=== PATIENT | female | born 1990 | race Caucasian/White ===

== ENCOUNTER 2024-08-04 20:44 | Emergency (ER) | payer BC, SELFPAY ==
[2024-08-04 20:46] VITALS: BP 102/72; PULSE 97; RESP 16; TEMP 36.8; O2SAT 98
[2024-08-04] MEDS: Ondansetron 4 MG/2 ML VIAL IVP ×2 (21:37→21:57)
[2024-08-04] MEDS: Ketorolac 15 MG/ML VIAL IVP (21:37)
[2024-08-04 21:45] LABS: Abs Immature Grans 0.03 10^3/uL (0.0-0.06); Absolute Basophil Count 0.03 10^3/uL (0.0-0.2); Absolute Eosinophil Count 0.12 10^3/uL (0.0-0.7); Absolute Lymphocyte Count 0.52 10^3/uL (1.2-3.4); Absolute Monocyte Count 1.12 10^3/uL (0.1-0.8); Absolute Neutrophil Count 8.29 10^3/uL (1.2-6.7); Basophils % 0.3 %; Eosinophils % 1.2 %; HCT 38.9 % (36.0-46.0); HGB 13.2 g/dL (11.2-15.7); Immature Grans % 0.3 %; Lymphocytes % 5.1 %; MCH 31.1 pg (27.0-33.0); MCHC 33.9 % (32.0-36.0); MCV 92 fL (80-95); MPV 8.4 fL (8.0-11.0); Monocytes % 11.1 %; Platelet Count 220 10^3/uL (130-400); RBC 4.24 10^6/uL (3.93-5.22); RDW-SD 43.9 fL; WBC 10.11 10^3/uL (4.4-10.8)
[2024-08-04] MEDS: ACETAMINOPHEN 1,000 MG/100 ML BAG 400 MG IVPB (21:56)
--- NOTE | 2024-08-04 21:57 | NUR.NOTE ---
Unable to provide urine at this time, JIM
[2024-08-04 22:00] VITALS: RESP 16; O2SAT 96
[2024-08-04 22:00] LABS: ALT 28 U/L (14-59); AST 25 U/L (15-37); Alkaline Phosphatase 62 U/L (46-116); BUN 9 mg/dL (7-18); Bilirubin, Total 0.67 mg/dL (0.2-1.0); CREATININE 0.9 mg/dL (0.55-1.02); Calcium 8.4 mg/dL (8.5-10.1); Chloride 105 mmol/L (98-107); Glucose 100 mg/dL (74-106); Magnesium 1.7 mg/dL (1.8-2.4); Potassium 3.7 mmol/L (3.5-5.1); Sodium 139 mmol/L (136-145); Total Protein 7.6 g/dL (6.4-8.2)
--- OUTSIDE RECORDS SUMMARY | 2024-08-04 22:12 | XMS_ITS | Clinical Summary ---
Author Organization [facility] Address [address] [place] [address] Care Team Providers Care Intern Brand Name Role Phone Teresita Choi APRN Primary Care Provider [phone] Allergies No known active allergies Medications ondansetron (ZOFRAN-ODT) 4 mg disintegrating tablet Take 1 Tab by mouth every 8 hours as needed for Nausea. 6 Tab 0 6 Active promethazine (PHENERGAN) 25 mg tablet Take 1 Tab by mouth every 6 hours as needed for Nausea. 10 Tab 7 Active Social History Tobacco Use Types Packs/Day Years Used Date Smoking Tobacco: Never Smokeless Tobacco: Never Alcohol Use Standard Drinks/Week Comments Yes 0 (1 standard drink = 0.6 oz pur e alcohol) Comments Unknown Sex and Gender Information Value Date Recorded Sex Assigned at Not on file Legal Sex Female 18:37 EST Gender Identity Not on file Sexual Orientation Not on file Obstetrics History Last Filed Vital Signs Vital Sign Reading Time Taken Comments Blood Pressure 100/59 10/13/2016 0034 EST Pulse 58 10/13/2016 0034 EST Temperature 36.7 ??C (98.1 ??F) 10/13/2016 0034 EST Respiratory Rate 16 10/13/2016 0034 EST Oxygen Saturation 98% 10/13/2016 0034 EST Inhaled Oxygen Concentration - - Weight 65.8 kg (145 lb) 10/12/20162011 EST Height 170.2 cm (5' 7) 10/12/20162011 EST Body Mass Index 22.71 10/12/20162011 EST Plan of Treatment Health Maintenance Due Date Last Done Comments Hepatitis C Screen 1990 Hepatitis B Vaccine (1 of 3 - 19+ 3-dose series) 11/11 COVID-19 Vaccine ( season) 2024 Care Teams Intern Brand Relationship Specialty Start Date End Date [facility]resita Ch[facility]N [facility] [id number] [id number] PCP - General 11/17/15
--- OUTSIDE RECORDS SUMMARY | 2024-08-04 22:13 | XMS_ITS | Encounter Summary ---
Author Organization [facility] Address [address] [place] [id number] Care Team Providers Care Abalone Fisherman Name Role Phone Teresita Choi APRN Primary Care Provider [phone] Reason for Visit * Reason Comments GI Problem Vomiting with chills since Monday Encounter Details Date Type Department Care Team (Late st Contact Info) Description 10/12/2016 20:10 EST - 10/13/2016 0:39 EST Emergency [facility] Emergency Department - [address] [place] [address] [place], [place] [id number] Pedro Toledo MD PA-C [address] [place] [address] Adalid Agosto PABrinda [address] [place], [place] [id number] Emergency, MD [place] Nausea and vomiting, intractability of vomiting not specified, unspecified vomiting type (Primary Dx) Discharge Disposition: Home or Self Care Social History Tobacco Use Types Packs/Day Years Used Date Smoking Tobacco: Never Smokeless Tobacco: Never Alcohol Use Standard Drinks/Week Comments Yes 0 (1 standard drink = 0.6 oz pur e alcohol) Comments Unknown Sex and Gender Information Value Date Recorded Sex Assigned at Not on file Legal Sex Female 18:37 EST Gender Identity Not on file Sexual Orientation Not on file documented as of this encounter Last Filed Vital Signs Vital Sign Reading [...] EST Body Mass Index 22.71 10/12/20162011 EST documented in this encounter Discharge Diagnoses Diagnosis R11.2 Nausea with vomiting, unspecified-R11.2[ICD-10-CM] R10.817 Generalized abdominal tenderness-R10.817[ICD-10-CM] documented in this encounter Discharge Instructions * Discharge Instructions* Adalid Agosto PA - 10/13/2016 0:25 EST Exam today shows normal vital signs, diffuse abdominal tenderness but nothing focal. Urinalysis shows no signs of infection. Blood work today including CBC, CMP and lipase is totally normal. Unclear source of your symptoms, but sounds likely to be a stomach bug or food borne illness which is lingering. In the emergency room. Given Zofran 8 mg IV and 2 L of fluid with some relief. You are given Phenergan 25 mg by mouth. At home, use this medication every 6 hours if needed for nausea or vomiting. Return immediately for worsening or uncontrolled symptoms, especially severe abdominal pain, uncontrolled vomiting, fevers, otherwise followup with your PCP. documented in this encounter Medications at Time of Discharge ondansetron (ZOFRAN-ODT) 4 mg disintegrating tablet Take 1 Tab by mouth every 8 hours as needed for Nausea. 6 Tab 0 03/08/2016 promethazine (PHENERGAN) 25 mg tablet Take 1 Tab by mouth every 6 hours as needed for Nausea. 10 Tab 10/13/2016 documented as of this encounter Ordered Prescriptions Prescription Sig Dispense Quantity Refills Last Filled Start Date End Date promethazine (PHENERGAN) 25 mg tablet Take 1 Tab by mouth every 6 hours as needed for Nausea. 10 Tab 10/13/2016 documented in this encounter Discharge Disposition Disposition Code Departure Means Destination Home or Self Care Car Home documented in this encounter ED Notes * Tiana Hanley RN - 10/13/2016 0037 EST Pt tolerating PO w/o N/V. VSS, afebrile. AVS and discharge paperwork reviewed w/ pt. Verbalized understanding. No acute events this visit. Ambulatory upon discharge. Leaving w/ friend. * Adalid Agosto PA - 10/12/2016 2147 EST DOS: 10/12/2016 Chief Complaint Patient presents with ??? GI Problem Vomiting with chills since Monday HPI HPI Comments: I, Marvin Abbott, am scribing for Adalid Agosto PA while he is personally performing the service. Marvin Abbott 10/12/2016 21:47 Loraine Mcdonald is a 25 y.o. female with a history of reported gastric ulcers and s/p appendectomy who presents to the ED with 3 days of nausea and vomiting. The vomiting was most frequent on the first day. She did not vomit at all yesterday, and only vomited once today, prior to arrival. She was given IV Zofran, Toradol, and NS prior to my evaluation, though she still complains of mild nausea. Patient also endorses diffuse, crampy abdominal pain, headache, and chills for the past 3 days. She states she has not been able to tolerate food since the onset of symptoms, and has not had a bowelmovement since 2 days ago. She states she has never had these kinds of symptoms before. Patient is c urrently on her menstrual period and notes the discharge is darker in color, but denies any irregular vaginal discharge. She denies diarrhea, cough, or cold symptoms. She denies hematuria or dysuria.She is not on any medication including control. Social history: No tobacco use. Drinks alcohol. The history is provided by medical records, the patient and a friend. Review of Systems Review of Systems Constitutional: Positive for appetite change and chills. Negative for fever. HENT: Negative for congestion and rhinorrhea. Respiratory: Negative for cough. Gastrointestinal: Positive for abdominal pain, nausea and vomiting. Negative for diarrhea. Genitourinary: Positive for vaginal discharge (on period, not irregular). Negative for dysuria and hematuria. Neurological: Positive for headaches. The patient's past medical, family and social history was reviewed and updated as needed. No Known Allergies Vital Signs Vitals Reassessment?: Yes Temp: 36.7 ??C (98.1 ??F) Temp src: Oral Pulse: 58 Resp: 16 SpO2: 98 % BP: 100/59 BP MAP: 68 mm Hg BP Device: BP Machine Patient Position: Sitting BP Cuff Location: Right arm O2 Device: None (Room air) Physical Exam Constitutional: She is oriented to person, place, and time. She appears well- developed and well-nourished. Non-toxic appearance. She does not appear ill. No distress. HENT: Mouth/Throat: Oropharynx is clear and moist. Eyes: Conjunctivae and EOM are normal. Pupils are equal, round, and reactive to light. Cardiovascular: Normal rate and regular rhythm. Pulmonary/Chest: Effort normal. Abdominal: There is tenderness (mild, diffuse, nonfocal). No flank tenderness Neurological: She is alert and oriented to person, place, and time. Skin: Skin is warm and dry. Psychiatric: She has a normal mood and affect. Her behavior is normal. Judgment and thought contentnormal. Nursing note and vitals reviewed. RESULTS EKG orders: None Radiology orders: None ED Lab Results Labs Reviewed COMPREHENSIVE METABOLIC PANEL (CMP) - Abnormal Result Value Status Potassium 3.4 (*) Final Sodium 139 Final Chloride 102 Final CO2 26 Final Total Alkaline Phosphatase 61 Final Bilirubin, Total 0.7 Final AST 25 Final ALT 28 Final Albumin 4.3 Final Total Protein 7.1 Final Creatinine 0.73 Final GFR, Calculated 113 Final BUN 11 Final Calcium 9.3 Final Calculated Calcium 9.1 Final Glucose, Serum 79 Final Fasting? Unknown Final HEMAGRAM AND DIFFERENTIAL - Abnormal ABS Lymphs 1.05 (*) Final ABS Monocytes 1.02 (*) Final WBC 7.03 Final RBC 4.39 Final Hemoglobin 13.5 Final HCT 38.9 Final MCV 89 Final MCH 30.8 Final MCHC 34.7 Final RDW-CV 12.7 Final RDW-SD 41.4 Final PLT 271 Final MPV 10.4 Final Neutrophils 67.8 Final Lymphocytes 14.9 Final Monocytes 14.5 Final Eosinophils 2.3 Final Basophils 0.4 Final Immature Grans 0.1 Final ABS Neutrophils 4.76 Final ABS Eosinophils 0.16 Final ABS Basophils 0.03 Final ABS Immature Grans 0.01 Final Type of Diff: Automated Final POCT URINE DIPSTICK - Abnormal Bilirubin 1+ (*) Final Ketones Trace (*) Final Blood 1+ (*) Final Protein 1+ (*) Final Color YELLOW Final Clarity, UA Clear Final Glucose Neg Final Specific [place] 1.020 Final pH 6.0 Final Urobilinogen 0.2 Final Nitrite Neg Final Leuk Esterase Neg Final Tech ID [id number] Final LIPASE Lipase 112 Final POCT TEST, CLINITEK UPT Result Neg Final Tech ID [id number] Final Patient had labs that were reviewed independently by myself, significant for normal CBC, normal BMP, and normal lipase. Urinalysis showed no signs of infection. Relevant Data Procedures ED COURSE A medical screening exam was performed. On exam, vitals were normal. Physical exam showed mild, diffuse abdominal tenderness. She had no flank tenderness and the rest of her exam was normal. Labs showed normal BMP, normal CBC, and normal lipase. Urinalysis showed no signs of infection. Patient was given another 1 L bolus of NS and Zofran4 mg IV. 23:30. Re-evaluation. Patient still complaining of nausea after 2 doses of Zofran. She was given Phenergan 25 mg PO. Will observe patient and see if she passes PO challenge. 00:30. Re-evaluation. Patient still slightly nauseous, but able to eat and drink with no vomiting. Patient was discharged with a starter pack of Phenergan. Prior to discharge my usual and customary return precautions were reviewed with the patient and/or family. This included follow-up instructions and reasons to return to the Emergency Department if condition worsens, does not improve as expected, or other new concerns arise. ASSESSMENT AND PLAN Final diagnoses: Nausea and vomiting, intractability of vomiting not specified, unspecified vomiting type ED Current Prescriptions Medication Dispense Auth. Provider promethazine (PHENERGAN) 25 mg tablet 10 Tab Adalid Agosto PA DISPOSITION: Discharged The patient's pain was managed to an adequate level weighing risk vs. benefit of further medications. Upon departure from the Emergency Department, the patient's pain was 2 on a zero to ten scale. Condition at departure from the Emergency Department: Improved PCP: Teresita Love was available for supervision. This documentation is recorded by Marvin Abbott acting as Scribe under the direction and presence of Adalid Agosto PA. Adalid Agosto PA: I personally performed the services recorded by the scribe in my presence. I confirm the scribe's documentation has been reviewed by me to accurately and completely record my work, treatment, procedures, and medical decision making. 10/14/2016 12:04 No flowsheet data found. * Pedro Toledo PA - 10/12/2016 2019 EST I, Vel Rush, am scribing for Pedro Toledo PA while he/she is personally performing the service. Vel Rush 10/12/2016 20:15 Loraine Mcdonald is a 25 y.o. female with no significant past medical history who presents to the with three days of nausea, vomiting and generalized abdominal pain that she describes as cramping in nature. She reports that three days ago, she developed nausea and vomiting, then today developed the abdominal discomfort. Patient states that she has had associated chills, increased fatigue andhas not been able to tolerate PO today. Yesterday she reports that she had only a piece of toast bymouth. Patient denies any recent sick contacts. She states that she has normal menstrual cycles andis currently having her menstrual cycle. Other than her typical vaginal bleeding during her period she denies any other vaginal discharge. She is sexually active but does not believe there is any chance of STD or STI. Patient states they have otherwise been healthy denying any headache, lightheadedness, dizziness, cough, ear pain, eye pain, fever, chills, neck pain, back pain, chest pain, shortness of breath, dysuria or difficulty ambulating. Social History - Patient endorses some social alcohol use but denies any other drug use. On my initial examination in triage the patient had diffuse epigastric discomfort with no real point tenderness. A POCT urine, UPT, and intravenous hydration was ordered prior to the patient being roomed. Toradol and zofran and 1L NS given for symptoms. Patient seen by me, the PA for an initial evaluation. An initial workup was started. Patient given instructions to wait to be seen until another provider can take over care. Given strict instructionsto not leave the department as workup has just begun and there could be further tests and regimens necessary to complete care. This documentation is recorded by Vel Rush acting as Scribe under the direction and presence of Pedro Toledo PA. Pedro Toledo PA: I personally performed the services recorded by the scribe in my presence. I confirm the scribe's documentation has been reviewed by me to accurately and completely record my work, treatment, procedures, and medical decision making. documented in this encounter Plan of Treatment Not on file documented as of this encounter Procedures Procedure Name Priority Date/Time Associated Diagnosis Comments COMPLETE BLOOD COUNT AND DIFFERENTIAL STAT 10/12/2016 22:20 EST LIPASE STAT 10/12/2016 22:20 EST COMPREHENSIVE METABOLIC PANEL (CMP) STAT 10/12/2016 22:20 EST POCT TEST, CLINITEK STAT 10/12/2016 20:41 EST POCT URINE DIPSTICK, CLINITEK STAT 10/12/2016 20:41 EST documented in this encounter Results * (ABNORMAL) HEMAGRAM AND DIFFERENTIAL (10/12/2016 22:20 EST) WBC 7.03 4.0 - 12.4 K/cmm 10/12/2016 23:21 [facility] RBC 4.39 3.86 - 5.04 M/cmm 10/12/2016 23:21 [facility] Hemoglobin 13.5 11.6 - 15.2 gm/dl 10/12/2016 23:21 [facility] HCT 38.9 34.9 - 44.4 % 10/12/2016 23:21 [facility] MCV 89 81 - 98 fl 10/12/2016 23:21 [facility] MCH 30.8 26.7 - 33.3 pg 10/12/2016 23:21 [facility] MCHC 34.7 32.1 - 35.9 gm/dl 10/12/2016 23:21 [facility] RDW-CV 12.7 11.7 - 14.6 % 10/12/2016 23:21 [facility] RDW-SD 41.4 37.6 - 50.3 fl 10/12/2016 23:21 [facility] PLT 271 141 - 377 K/cmm 10/12/2016 23:21 [facility] MPV 10.4 9.5 - 12.7 fl 10/12/2016 23:21 [facility] % Neutrophils 67.8 % 10/12/2016 23:21 [facility] % Lymphocytes 14.9 % 10/12/2016 23:21 [facility] % Monocytes 14.5 % 10/12/2016 23:21 [facility] % Eosinophils 2.3 % 10/12/2016 23:21 [facility] % Basophils 0.4 % 10/12/2016 23:21 [facility] % Immature Grans 0.1 % 10/12/2016 23:21 [facility] ABS Neutrophils 4.76 2.20 - 8.85 K/cmm 10/12/2016 23:21 [facility] ABS Lymphs 1.05(L) 1.09 - 3.30 K/cmm 10/12/2016 23:21 [facility] ABS Monocytes 1.02(H) 0.1 - 0.8 K/cmm 10/12/2016 23:21 [facility] ABS Eosinophils 0.16 0.03 - 0.61 K/cmm 10/12/2016 23:21 [facility] ABS Basophils 0.03 0.01 - 0.11 K/cmm 10/12/2016 23:21 [facility] ABS Immature Grans 0.01 0 - 0.06 K/cmm 10/12/2016 23:21 [facility] Type of Diff: Automated 10/12/2016 23:21 [facility] Blood specimen (specimen) BLOOD SPECIMEN / Unknown 10/12/2016 22:20 EST 10/12/2016 22:48 EST Adalid Agosto PA-C PACKAGES & DNA PROBE ORDERABL ES Final Result [facility] [address] [place] [address] * (ABNORMAL) COMPREHENSIVE METABOLIC PANEL (CMP) (10/12/2016 22:20 EST) Potassium 3.4(L) 3.5 - 5.0 mEq/L 10/12/2016 23:08 [facility] Sodium 139 136 - 145 mEq/L 10/12/2016 23:08 [facility] Chloride 102 96 - 110 mEq/L 10/12/2016 23:08 [facility] CO2 26 22 - 32 mEq/L 10/12/2016 23:08 [facility] Comment:Note new reference r lori 05/24/16 Total Alkaline Phosphatase 61 38 - 126 U/L 10/12/2016 23:08 [facility] Bilirubin, Total 0.7 <1.4 mg/dl 10/13/19 17 23:08 [facility] AST 25 15 - 46 U/L 10/12/2016 23:08 [facility] ALT 28 <53 U/L 10/12/2016 23:08 [facility] Albumin 4.3 3.4 - 4.9 g/dl 10/12/2016 23:08 [facility] Total Protein 7.1 6.3 - 8.2 g/dl 10/12/2016 23:08 [facility] Creatinine 0.73 0.52 - 1.04 mg/dl 10/12/2016 23:08 [facility] GFR, Calculated 113 >60 ml/min/1.7 3m2 10/12/2016 23:08 [facility] Comment: eGFR calculated using CKD-EPI equation for non Americans. Multiply eGFR by 1.16 for Americans. BUN 11 10 - 26 mg/dl 10/12/2016 23:08 [facility] Calcium 9.3 8.5 - 10.5 mg/dl 10/12/2016 23:08 [facility] Calculated Calcium 9.1 8.5 - 10.5 mg/dl 10/12/2016 23:08 [facility] Comment: Note new formula for calculation in use 05/11/2016 Glucose, Serum 79 70 - 100 mg/dl 10/12/2016 23:08 [facility] Fasting? Unknown 10/12/2016 22:48 EST [facility] Blood specimen (specimen) BLOOD SPECIMEN / Unknown 10/12/2016 22:20 EST 10/12/2016 22:48 EST Adalid Agosto PA-C CHEMISTRY & BLOOD GAS ORDERAB LES Final Result Performing Organization Address City/[facility]/ZIP Co de Phone Number [facility] [address] [place] [address] * LIPASE (10/12/2016 22:20 EST) Lipase 112 <251 U/L 10/12/2016 23:08 EST [facility] Blood specimen (specimen) BLOOD SPECIMEN / Unknown 10/12/2016 22:20 EST 10/12/2016 22:48 EST Adalid Agosto PA-C CHEMISTRY & BLOOD GAS ORDERAB LES Final Result Performing Organization Address City/[facility]/ZIP Co de Phone Number [facility] [address] [place] [address] * POCT TEST, CLINITEK (10/12/2016 20:41 EST) UPT Result Neg Neg 10/12/2016 20:50 EST [facility] platen press operator ID [id number] 10/12/2016 20:50 EST [facility] Comment:Test performed at [facility] Urine specimen (specimen) URINE / Unknown 10/12/2016 20:41 EST 10/12/2016 20:50 EST Pedro Toledo MD, PA-C POINT OF CARE T EST ORDERABLES Final Result Performing Organization Address City/[facility]/ZIP Co de Phone Number [facility] [address] [place] [address] * (ABNORMAL) POCT URINE DIPSTICK (10/12/2016 20:41 EST) Color YELLOW 10/12/2016 20:45 [facility] Clarity, UA Clear 10/12/2016 20:45 [facility] Glucose Neg Neg 10/12/2016 20:45 [facility] Bilirubin 1+(A) Neg 10/12/2016 20:45 [facility] Ketones Trace(A) Neg 10/12/2016 20:45 [facility] Specific [place] 1.020 1.001 - 1.035 10/12/2016 20:45 [facility] Blood 1+(A) Neg 10/12/2016 20:45 [facility] pH 6.0 4.6 - 8.0 10/12/2016 20:45 [facility] Protein 1+(A) Neg 10/12/2016 20:45 [facility] Urobilinogen 0.2 0.2 - 1.0 E.U./dl 10/12/2016 20:45 [facility] Nitrite Neg Neg 10/12/2016 20:45 [facility] Leuk Esterase Neg Neg 10/12/2016 20:45 [facility] platen press operator ID [id number] 10/12/2016 20:45 [facility] Comment:Test performed at [facility] Urine specimen (specimen) URINE / Unknown 10/12/2016 20:41 EST 10/12/2016 20:45 EST Pedro Toledo MD, PA-C POINT OF CARE T EST ORDERABLES Final Result Performing Organization Address City/[facility]/ZIP Co de Phone Number [facility] [address] [place] [address] documented in this encounter Visit Diagnoses Diagnosis Nausea and vomiting, intractability of vomiting not specified, unspecified vomiting type- Primary documented in this encounter Administered Medications Inactive Administered Medications - up to 3 most recent administrations Medication Order MAR Action Action Date Dose Rate Site ketOROLAC (TORADOL) injection 15 mg 15 mg, intravenous, NOW X1, 1 dose, On Mon10/12/16 at 2030, STAT Given 10/12/2016 20:36 EST 15 mg ondansetron (PF) (ZOFRAN) injection 4 mg 4 mg, intravenous, NOW X1, 1 dose, On Mon10/12/16 at 2030, STAT Given 10/12/2016 20:36 EST 4 mg ondansetron (PF) (ZOFRAN) injection 4 mg 4 mg, intravenous, NOW X1, 1 dose, On Mon10/12/16 at 2200, STAT Given 10/12/2016 22:20 EST 4 mg promethazine (PHENERGAN) tablet 25 mg 25 mg, oral, NOW X1, 1 dose, On Mon10/12/16 at 2345, STAT Given 10/12/2016 23:45 EST 25 mg Promethazine 25 mg Tab STARTER PACK 1 Package, oral, NOW X1, 1 dose, On Mon10/13/16 at 0030, STAT Given 10/13/2016 0:37 EST 1 Package sodium chloride 0.9 % BOLUS 1,000 mL 1,000 mL, intravenous, NOW X1, 1 dose, On Mon10/12/16 at 2030, STAT New Bag 10/12/2016 20:36 EST 1,000 mL sodium chloride 0.9 % BOLUS 1,000 mL 1,000 mL, intravenous, Once (Without Time Specified), 1 dose, Starting on Mon10/12/16 at 2159, Until Mon10/12/16 at 2355, STAT New Bag 10/12/2016 22:20 EST 1,000 mL documented in this encounter Active and Recently Administered Medications Times are shown in EST. Scheduled Medication Order 10/11/2016 10/12/2016 10/13/2016 ketOROLAC (TORADOL) injection 15 mg (COMPLETED) 15 mg, intravenous, NOW X1, 1 dose, On Mon10/12/16 at 2030, STAT 2035 (Given - Provider: Yue Jefferson RN) ondansetron (PF) (ZOFRAN) injection 4 mg (COMPLETED) 4 mg, intravenous, NOW X1, 1 dose, On Mon10/12/16 at 2030, STAT 2036 (Given - Provider: Yue Jefferson, JOSE MARIA) ondansetron (PF) (ZOFRAN) injection 4 mg (COMPLETED) 4 mg, intravenous, NOW X1, 1 dose, On Mon10/12/16 at 2200, STAT 2220 (Given - Provider: Tiana Hanley, RN) promethazine (PHENERGAN) tablet 25 mg (COMPLETED) 25 mg, oral, NOW X1, 1 dose, On Mon10/12/16 at 2345, STAT 2345 (Given - Provider: Tiana Hanley, JOSE MARIA) Promethazine 25 mg Tab STARTER PACK (COMPLETED) 1 Package, oral, NOW X1, 1 dose, On Nohemy 10/13/16 at 0030, STAT 0037 (Given - Provid er: Tiana Hanley RN) sodium chloride 0.9 % BOLUS 1,000 mL (COMPLETED) 1,000 mL, intravenous, NOW X1, 1 dose, On 10/12/16 at 2030, STAT 2036 (New Bag - Provider: Yue Jefferson RN)2220 (Completed - Provider: Tiana Hanley RN) sodium chloride 0.9 % BOLUS 1,000 mL (COMPLETED) 1,000 mL, intravenous, Once (Without Time Specified), 1 dose, Starting on Mon10/12/16 at 2159, Until Mon10/12/16 at 2355, STAT 2220 (New Bag - Provider: Tiana Hanley, JOSE MARIA)2355 (Completed - Provider: Tiana Hanley, JOSE MARIA) documented in this encounter Orders Nursing Count Last Ordered Date First Orde red Date INSERT PERIPHERAL IV 1 10/12/2016 documented in this encounter Care Teams Abalone Fisherman Relationship Specialty Start Date End Date Teresita Choi APRN [facility] [address] [place] [address] PCP - General 11/17/15 documented as of this encounter
--- OUTSIDE RECORDS SUMMARY | 2024-08-04 22:13 | XMS_ITS | Encounter Summary ---
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 Name Role Phone Teresita Choi APRN Primary Care Provider [phone] Reason for Visit * Reason Comments Abdominal Pain Intermittent lower a bdominal pain w/ profound constant nausea since Monday, diarrhea Encounter Details Date Type Department Care Team (Late st Contact Info) Description 03/08/2016 11:37 EDT - 03/08/2016 15:33 EDT Emergency [facility] [place] [address] Tyson Sarabia MD Emergency, MD [place] Generalized abdominal pain (Primary Dx); Hematochezia; Nausea Discharge Disposition: Home or Self Care Social History Tobacco Use Types Packs/Day Years Used Date Smoking Tobacco: Never Assessed Comments Unknown Sex and Gender Information Value Date Recorded Sex Assigned at Not on file Legal Sex Female 18:37 EST Gender Identity Not on file Sexual Orientation Not on file documented as of this encounter Last Filed Vital Signs Vital Sign Reading Time Taken Comments Blood Pressure 113/61 03/08/2016 1500 EDT Pulse - - Temperature 36.6 ??C (97.9 ??F) 03/08/2016 1151 EDT Respiratory Rate - - Oxygen Saturation 99% 03/08/2016 1500 EDT Inhaled Oxygen Concentration - - Weight 70.3 kg (155 lb) 03/08/2016 1151 EDT Height 172.7 cm (5' 8) 03/08/2016 1151 EDT Body Mass Index 23.57 03/08/2016 1151 EDT documented in this encounter Discharge Diagnoses Diagnosis R10.30 Lower abdominal pain, unspecified-R10.30[ICD-10-CM] K92.1 Melena-K92.1[ICD-10-CM] R11.0 Nausea-R11.0[ICD-10-CM] Z90.49 Acquired absence of other specified parts of digestive tract-Z90.49[ICD-10-CM] documented in this encounter Discharge Instructions * Discharge Instructions* Tyson Sarabia MD - 03/08/2016 14:42 EDT Use the zofran if needed for nausea Use tylenol and warmth to abdomen for pain Lots liquids See GI doctor in followup Return here if worsening symptoms documented in this encounter Medications at Time of Discharge ondansetron (ZOFRAN-ODT) 4 mg disintegrating tablet Take 1 Tab by mouth every 8 hours as needed for Nausea. 6 Tab 0 03/08/2016 documented as of this encounter Ordered Prescriptions Prescription Sig Dispense Quantity Refills Last Filled Start Date End Date ondansetron (ZOFRAN-ODT) 4 mg disintegrating tablet Take 1 Tab by mouth every 8 hours as needed for Nausea. 6 Tab 0 03/08/2016 documented in this encounter Discharge Disposition Disposition Code Departure Means Destination Home or Self Care Walk-out Home documented in this encounter ED Notes * Jabier Sharpe RN - 03/08/2016 1532 EDT Vitals obtained- reviewed discharge instructions with pt. * Eloise Rome RN - 03/08/2016 1334 EDT Pt given ice chips and water per md. * Eloise Rome RN - 03/08/2016 1328 EDT Pt set up for pelvic exam, Dr Sarabia in room , pelvic exam done , pt tolerated well. * Partha Mccarty - 03/08/2016 1317 EDT Blood drawn via saline lock per protocol, tiger and purple tube(s) sent to lab per order. * Tyson Sarabia MD - 03/08/2016 1211 EDT DOS: 03/08/2016 Chief Complaint Patient presents with ??? Abdominal Pain Intermittent lower abdominal pain w/ profound constant nausea since Monday, diarrhea HPI The patient is a 25 y.o. female who presents today with Abdominal Pain HPI Comments: I, Eva Yang, am scribing for Tyson Sarabia MD while he is personally performing the service. Eva Yang 03/08/2016 12:12 Loraine Mcdonald is a 25 y.o. 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 Pain is described as sharp and has never full resolved since onset. She notes associated nausea, loose stools, decreased appetite and increased white vaginal secretions, which she has had previously. She denies possible exposure to sexually transmitted disease. She reports chronic abdominal cramping and bright red blood in her stool (present currently) at baseline due to bowel disease, which are unchanged today. Patient notes these current symptoms feel different in nature and more severe than previous. Patient states symptoms worsened yesterday causing her to be diaphoretic, SOB, and lightheaded and was sent home from work. She denies fever, CP, vomiting, dysuria, hematuria, diarrhea, constipation, frequency, or urgency. Patient is sexually active and on Nuvaring. She denies family history of bowel disease. Patient states she had a follow up with GI several weeks ago, but had to cancel this due to a family emergency. The history is provided by the patient and medical records. Review of Systems Review of Systems Constitutional: Positive for diaphoresis and appetite change (reduced). Negative for fever and chills. Eyes: Negative for visual disturbance. Respiratory: Positive for shortness of breath. Cardiovascular: Negative for chest pain. Gastrointestinal: Positive for nausea, abdominal pain and blood in stool (chronic). Negative for vomiting, diarrhea and constipation. Genitourinary: Positive for vaginal discharge (increased). Negative for dysuria, urgency, hematuria, vaginal bleeding and difficulty urinating. Musculoskeletal: Negative for back pain and neck stiffness. Skin: Negative for rash. Neurological: Positive for light-headedness. Negative for dizziness, weakness and headaches. Psychiatric/Behavioral: Negative for confusion. All other systems reviewed and are negative. No Known Allergies Vital Signs Temp: 36.6 ??C (97.9 ??F) Heart Rate: 59 BPM SpO2: 100 % BP: 132/77 mmHg BP Device: BP Machine Patient Position: Sitting BP Cuff Location: Right arm O2 Device: None (Room air) Physical Exam Constitutional: She is oriented to person, place, and time. She appears well- developed and well-nourished. No distress. HENT: Head: Normocephalic and atraumatic. Right Ear: External ear normal. Left Ear: External ear normal. Nose: Nose normal. Eyes: Conjunctivae are normal. Pupils are equal, round, and reactive to light. Right eye exhibits no discharge. Left eye exhibits no discharge. Neck: Normal range of motion. Neck supple. No tracheal deviation present. Cardiovascular: Normal rate, regular rhythm and normal heart sounds. No murmur heard. Pulmonary/Chest: Effort normal and breath sounds normal. No respiratory distress. She has no wheezes. She has no rales. Abdominal: Soft. Bowel sounds are normal. She exhibits no distension. There is tenderness (Tender diffusely but most prominently in the lower abdomen.). Genitourinary: Pelvic exam performed with manager academic, which showed small amount of clear discharge around the cervical os. Mild diffuse adnexal and uterine tenderness. No significant cervical motion tenderness. No bleeding. No masses. Musculoskeletal: Normal range of motion. Neurological: She is alert and oriented to person, place, and time. She has normal strength. No sensory deficit. Awake and alert. Skin: Skin is warm and dry. No rash noted. She is not diaphoretic. Psychiatric: She has a normal mood and affect. Nursing note and vitals reviewed. RESULTS ED Lab Results Labs Reviewed HEMAGRAM AND DIFFERENTIAL - Abnormal MPV 9.3 (*) Final WBC 6.83 Final RBC 4.54 Final Hemoglobin 13.9 Final HCT 39.8 Final MCV 88 Final MCH 30.6 Final MCHC 34.9 Final RDW-CV 12.4 Final RDW-SD 39.8 Final PLT 299 Final Neutrophils 54.8 Final Lymphocytes 31.9 Final Monocytes 9.8 Final Eosinophils 2.5 Final Basophils 0.7 Final Immature Grans 0.3 Final ABS Neutrophils 3.74 Final ABS Lymphs 2.18 Final ABS Monocytes 0.67 Final ABS Eosinophils 0.17 Final ABS Basophils 0.05 Final ABS Immature Grans 0.02 Final Type of Diff: Automated Final BASIC METABOLIC PANEL - Abnormal BUN 9 (*) Final Sodium 142 Final Potassium 3.7 Final Chloride 102 Final CO2 28 Final Creatinine 0.72 Final GFR, Calculated 115 Final Calcium 9.7 Final Calculated Calcium 9.7 Final Glucose, Serum 84 Final Fasting? Unknown Final POCT URINE DIPSTICK - Abnormal Blood Trace (*) Final Color YELLOW Final Clarity, UA Clear Final Glucose Neg Final Bilirubin Neg Final Ketones Neg Final Specific [place] 1.010 Final pH 5.5 Final Protein Neg Final Urobilinogen 0.2 Final Nitrite Neg Final Leuk Esterase Neg Final Tech ID [id number] Final CHLAMYDIA/GC AMPLIFIED HEPATIC FUNCTION PANEL (ALB,ALK PHOS,ALT,AST,DBIL,TOT KARO,TOT PROT) Albumin 4.4 Final Total Protein 7.5 Final Total Alkaline Phosphatase 60 Final ALT 25 Final AST 23 Final Unconjugated Bilirubin 0.3 Final Conjugated Bilirubin 0.0 Final Bilirubin, Total 0.7 Final POCT TEST, CLINITEK UPT Result Neg Final Tech ID [id number] Final Procedures ED COURSE A medical screening exam was performed. Metabolic panel and liver function studies are normal. I feel that the patient???s symptoms have a high likelihood of being related to inflammatory bowel disease. She had a colonoscopy scheduled thismonth and had to cancel due to family issues and will reschedule. I do not feel US or CT scan is indicated at this time. Will treat her symptomatically and refer back to gastroenterology. I do not feel the patient has PID, but am most suspicious about inflammatory bowel disease. Given her appendectomy, chronic nature of her pain and hematochezia, I do not feel a CT scan is indicated at this time and will have her follow up with GI doctors as she has planned. Candie for home. Return with worsening symptoms. ASSESSMENT AND PLAN Final diagnoses: Generalized abdominal pain Hematochezia Nausea DISPOSITION: Discharged The patient's pain was managed to an adequate level weighing risk vs. benefit of further medications. Upon departure from the Emergency Department, the patient's pain was 0 on a zero to ten scale. Condition at departure from the Emergency Department: Improved PCP: Teresita Choi MDM Number of Diagnoses or Management Options Generalized abdominal pain: Hematochezia: Nausea: Diagnosis management comments: 4 This documentation is recorded by Eva Yang acting as Scribe under the direction and presence of Tyson Sarabia MD. Tyson Sarabia MD: I personally performed the services recorded by the scribe in my presence. I confirm the scribe's documentation has been reviewed by me to accurately and completely record my work, treatment, procedures, and medical decision making. 03/08/2016 14:41 No flowsheet data found. documented in this encounter Plan of Treatment Not on file documented as of this encounter Procedures Procedure Name Priority Date/Time Associated Diagnosis Comments CHLAMYDIA/N. GONORRHOEAE AMPLIFIED NUCLEIC ACID Routine 03/08/2016 13:25 EDT POCT URINE DIPSTICK, CLINITEK STAT 03/08/2016 12:58 EDT POCT TEST, CLINITEK STAT 03/08/2016 12:55 EDT COMPLETE BLOOD COUNT AND DIFFERENTIAL STAT 03/08/2016 12:44 EDT HEPATIC FUNCTION PANEL (ALB,ALK PHOS,ALT,AST,DBIL,TOT KARO,TOT PROT) STAT 03/08/2016 12:44 EDT BASIC METABOLIC PANEL (BMP) STAT 03/08/2016 12:44 EDT documented in this encounter Results * CHLAMYDIA/GC AMPLIFIED (03/08/2016 13:25 EDT) Chlamydia Result Wrong tube/speci men type 03/08/2016 19:04 EDT [facility] Comment: Credit Issued ED NOTIFIED GC Result Wrong tube/speci men type 03/08/2016 19:04 EDT [facility] Comment: Credit Issued ED NOTIFIED Specimen of unknown material (specimen) ENDOCERVICAL STRUCTURE / Unknown 03/08/2016 13:25 EDT 03/08/2016 19:02 EDT us Tyson Sarabia MD MICROBIOLOGY - GENERAL KIERAN CONDE Final Result [facility] [address] [place] [address] * (ABNORMAL) POCT URINE DIPSTICK (03/08/2016 12:58 EDT) Color YELLOW 03/08/2016 12:55 [facility] Clarity, UA Clear 03/08/2016 12:55 [facility] Glucose Neg Neg 03/08/2016 12:55 [facility] Bilirubin Neg Neg 03/08/2016 12:55 [facility] Ketones Neg Neg 03/08/2016 12:55 [facility] Specific [place] 1.010 1.001 - 1.035 03/08/2016 12:55 [facility] Blood Trace(A) Neg 03/08/2016 12:55 [facility] pH 5.5 4.6 - 8.0 03/08/2016 12:55 [facility] Protein Neg Neg 03/08/2016 12:55 [facility] Urobilinogen 0.2 0.2 - 1.0 E.U./dl 03/08/2016 12:55 [facility] Nitrite Neg Neg 03/08/2016 12:55 [facility] Leuk Esterase Neg Neg 03/08/2016 12:55 [facility] director long term care ID [id number] 03/08/2016 12:55 [facility] Comment:Test performed at [facility] Urine specimen (specimen) URINE / Unknown 03/08/2016 12:58 EDT 03/08/2016 12:55 EDT us Tyson Sarabia MD POINT OF CARE TEST ORDERABL ES Final Result Performing Organization Address [facility] Co de Phone Number [facility] [address] [place] [address] * POCT TEST, CLINITEK (03/08/2016 12:55 EDT) UPT Result Neg Neg 03/08/2016 12:59 EDT [facility] director long term care ID [id number] 03/08/2016 12:59 EDT [facility] Comment:Test performed at [facility] Urine specimen (specimen) URINE / Unknown 03/08/2016 12:55 EDT 03/08/2016 12:59 EDT us Tyson Sarabia MD POINT OF CARE TEST ORDERABL ES Final Result Performing Organization Address [facility] Co de Phone Number [facility] [address] [place] [address] * HEPATIC FUNCTION PANEL (ALB,ALK PHOS,ALT,AST,DBIL,TOT KARO,TOT PROT) (03/08/2016 12:44 EDT) Albumin 4.4 3.4 - 4.9 g/dl 03/08/2016 13:25 EDT [facility] Total Protein 7.5 6.3 - 8.2 g/dl 03/08/2016 13:25 [facility] Total Alkaline Phosphatase 60 38 - 126 U/L 03/08/2016 13:25 [facility] ALT 25 <53 U/L 03/08/2016 13:25 [facility] AST 23 15 - 46 U/L 03/08/2016 13:25 [facility] Unconjugated Bilirubin 0.3 0.0 - 1.1 mg/dl 03/08/2016 13:25 [facility] Conjugated Bilirubin 0.0 0.0 - 0.3 mg/dl 03/08/2016 13:25 [facility] Bilirubin, Total 0.7 <1.4 mg/dl 03/08/20 16 13:25 [facility] Blood specimen (specimen) BLOOD SPECIMEN / Unknown 03/08/2016 12:44 EDT 03/08/2016 13:08 EDT us Tyson Sarabia MD CHEMISTRY & BLOOD GAS ORDER MACY Final Result [facility] [address] [place] [address] * (ABNORMAL) BASIC METABOLIC PANEL (03/08/2016 12:44 EDT) Sodium 142 136 - 145 mEq/L 03/08/2016 13:25 [facility] Potassium 3.7 3.5 - 5.0 mEq/L 03/08/2016 13:25 [facility] Chloride 102 96 - 110 mEq/L 03/08/2016 13:25 [facility] CO2 28 24 - 32 mEq/L 03/08/2016 13:25 [facility] BUN 9(L) 10 - 26 mg/dl 03/08/2016 13:25 [facility] Creatinine 0.72 0.52 - 1.04 mg/dl 03/08/2016 13:25 [facility] GFR, Calculated 115 >60 ml/min/1.7 3m2 03/08/2016 13:25 [facility] Comment: eGFR calculated using CKD-EPI equation for non Americans. Multiply eGFR by 1.16 for Americans. Calcium 9.7 8.5 - 10.5 mg/dl 03/08/2016 13:25 [facility] Calculated Calcium 9.7 8.5 - 10.5 mg/dl 03/08/2016 13:25 [facility] Glucose, Serum 84 70 - 100 mg/dl 03/08/2016 13:25 [facility] Fasting? Unknown 03/08/2016 13:09 [facility] Blood specimen (specimen) BLOOD SPECIMEN / Unknown 03/08/2016 12:44 EDT 03/08/2016 13:08 EDT us Tyson Sarabia MD CHEMISTRY & BLOOD GAS ORDER MACY Final Result [facility] [address] [place] [address] * (ABNORMAL) HEMAGRAM AND DIFFERENTIAL (03/08/2016 12:44 EDT) WBC 6.83 4.0 - 12.4 K/cmm 03/08/2016 13:11 [facility] RBC 4.54 3.86 - 5.04 M/cmm 03/08/2016 13:11 [facility] Hemoglobin 13.9 11.6 - 15.2 gm/dl 03/08/2016 13:11 [facility] HCT 39.8 34.9 - 44.4 % 03/08/2016 13:11 [facility] MCV 88 81 - 98 fl 03/08/2016 13:11 [facility] MCH 30.6 26.7 - 33.3 pg 03/08/2016 13:11 [facility] MCHC 34.9 32.1 - 35.9 gm/dl 03/08/2016 13:11 [facility] RDW-CV 12.4 11.7 - 14.6 % 03/08/2016 13:11 [facility] RDW-SD 39.8 37.6 - 50.3 fl 03/08/2016 13:11 [facility] PLT 299 141 - 377 K/cmm 03/08/2016 13:11 [facility] MPV 9.3(L) 9.5 - 12.7 fl 03/08/2016 13:11 [facility] % Neutrophils 54.8 % 03/08/2016 13:11 [facility] % Lymphocytes 31.9 % 03/08/2016 13:11 [facility] % Monocytes 9.8 % 03/08/2016 13:11 [facility] % Eosinophils 2.5 % 03/08/2016 13:11 [facility] % Basophils 0.7 % 03/08/2016 13:11 [facility] % Immature Grans 0.3 % 03/08/2016 13:11 [facility] ABS Neutrophils 3.74 2.20 - 8.85 K/cmm 03/08/2016 13:11 [facility] ABS Lymphs 2.18 1.09 - 3.30 K/cmm 03/08/2016 13:11 [facility] ABS Monocytes 0.67 0.1 - 0.8 K/cmm 03/08/2016 13:11 [facility] ABS Eosinophils 0.17 0.03 - 0.61 K/cmm 03/08/2016 13:11 [facility] ABS Basophils 0.05 0.01 - 0.11 K/cmm 03/08/2016 13:11 [facility] ABS Immature Grans 0.02 0 - 0.06 K/cmm 03/08/2016 13:11 [facility] Type of Diff: Automated 03/08/2016 13:11 [facility] Blood specimen (specimen) BLOOD SPECIMEN / Unknown 03/08/2016 12:44 EDT 03/08/2016 13:08 EDT us Tyson Sarabia MD PACKAGES & DNA PROBE ORDERA BLES Final Result [facility] [address] [place] [address] documented in this encounter Visit Diagnoses Diagnosis Generalized abdominal pain- Primary Abdominal pain, generalized Hematochezia Blood in stool Nausea Nausea alone documented in this encounter Administered Medications Inactive Administered Medications - up to 3 most recent administrations Medication Order MAR Action Action Date Dose Rate Site ketOROLAC (TORADOL) injection 15 mg 15 mg, intravenous, NOW X1, 1 dose, On Mon03/08/16 at 1245, STAT Given 03/08/2016 13:49 EDT 15 mg ondansetron (PF) (ZOFRAN) 4 mg/2 mL injection 1 dose, Starting on 03/08/16 at 1501, Until 03/08/16 at 1513 ondansetron (PF) (ZOFRAN) injection 4 mg 4 mg, intravenous, NOW X1, 1 dose, On 03/08/16 at 1515, STAT Given 03/08/2016 15:13 EDT 4 mg ondansetron (PF) (ZOFRAN) injection 4 mg 4 mg, intravenous, NOW X1, 1 dose, On 03/08/16 at 1245, STAT Given 03/08/2016 13:49 EDT 4 mg sodium chloride 0.9 % BOLUS 1,000 mL 1,000 mL, intravenous, NOW X1, 1 dose, On e 03/08/16 at 1245, STAT New Bag 03/08/2016 13:09 EDT 1,000 mL IV documented in this encounter Active and Recently Administered Medications Times are shown in EDT. Scheduled Medication Order 03/06/2016 03/07/2016 03/08/2016 ketOROLAC (TORADOL) injection 15 mg (COMPLETED) 15 mg, intravenous, NOW X1, 1 dose, On 03/08/16 at 1245, STAT 1349 (Given - Provid er: Jabier Sharpe RN) ondansetron (PF) (ZOFRAN) injection 4 mg (COMPLETED) 4 mg, intravenous, NOW X1, 1 dose, On 03/08/16 at 1515, STAT 1513 (Given - Provid er: Jabier Sharpe RN) ondansetron (PF) (ZOFRAN) injection 4 mg (COMPLETED) 4 mg, intravenous, NOW X1, 1 dose, On 03/08/16 at 1245, STAT 1349 (Given - Provid er: Jabier Sharpe RN) sodium chloride 0.9 % BOLUS 1,000 mL (COMPLETED) 1,000 mL, intravenous, NOW X1, 1 dose, On 03/08/16 at 1245, STAT 1309 (New Bag - Prov ider: Partha Mccarty)1500 (Completed - Provider: Jabier Sharpe RN) documented in this encounter Orders Nursing Count Last Ordered Date First Orde red Date INSERT SALINE LOCK 03/08/2016 NURSING COMMUNICATION 1 03/08/2016 documented in this encounter Care Teams Automotive Airconditioning Mechanic Relationship Specialty Start Date End Date Teresita Choi APRN [address] [place] [phone] PCP - General 11/17/15 documented as of this encounter
--- OUTSIDE RECORDS SUMMARY | 2024-08-04 22:13 | XMS_ITS | Encounter Summary ---
Author Organization 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 Name Role Phone Unavailable Primary Care Provider Unavailabl e Encounter Details Date Type Department Care Team (Late st Contact Info) Description 10/28/2005 Results Only [facility] [address] [place] [address] Bruce Stanley MD [address] [place], [place] [id number] Social History Tobacco Use Types Packs/Day Years Used Date Smoking Tobacco: Never Assessed Comments Unknown Sex and Gender Information Value Date Recorded Sex Assigned at Not on file Legal Sex Female 18:37 EST Gender Identity Not on file Sexual Orientation Not on file documented as of this encounter Plan of Treatment Not on file documented as of this encounter Procedures Procedure Name Priority Date/Time Associated Diagnosis Comments SURGICAL PATHOLOGY Routine 10/28/2005 0:00 EST documented in this encounter Results * SURGICAL PATHOLOGY (10/28/2005 0:00 EST) Pathology Report: SURGICAL PATHOLOGY REPORT Reports generated via electronic interface contain original data; however they are lacking the format of the original report. Caution should be taken when reading/interpreti ng unformatted reports. Name: ? LORAINE JONES ? Accession #: ? [id number] ? : ? 1990 (Age: 14) ??F ? Collect Date: ? 10/28/2005 ? Location: ? [facility] ? Receive Date: ? 10/31/2005 ? Provider: BRUCE STANLEY MD Copy to: MIKI BROCK MD ? Final Pathologic Diagnosis: ? Appendix, appendectomy: - Benign appendix with no acute appendicitis. ??See comment. Comment: ? The entire specimen has been examined histologically. ??(Dr. Steel)/[facility] Document reviewed and electronically signed by: Giovana Islas MD Report ??Date: 11/04/2005 10:03 By the signature above, the attending physician certifies that he/she has personally conducted a gross and/or microscopic examination of the described specimens and rendered or confirmed the above diagnosis. Specimen(s) Received: ? Appendix Clinical History: ? Lower abdominal pain, ? appendicitis Gross Description: ? Received in formalin labelled Gingue and appendix is a product of an appendectomy that measures 9.0 cm in length by 0.5 cm in diameter. ??The stapled proximal resection margin is inked black. The serosa is hess-pink, glistening and focally dusky. ??Serial sectioning of the appendix reveals brown fecal material. The entire specimen is submitted as (A1) to (A5). ??(Dr. Steel)/[facility] End of Report LUCIAN ZAMARRIPA 10/28/2005 10/31/2005 15: 50 EST us Bruce Stanley MD PATHOLOGY ORDERABLES Final Resul t LUCIAN ZAMARRIPA [address] [place] [address] documented in this encounter Visit Diagnoses Not on filedocumented in this encounter
--- OUTSIDE RECORDS SUMMARY | 2024-08-04 22:13 | XMS_ITS | Referral Summary ---
Author Organization [facility] Address [address] [place] [address] Care Team Providers Care Bad Credit Collector Name Role Phone Teresita Choi APRN Primary Care Provider [phone] Allergies No known active allergies Medications ondansetron [...] on file Sexual Orientation Not on file Last Filed Vital Signs Vital Sign Reading [...] Index 22.71 10/12/20162011 EST Plan of Treatment Not on file Care Teams Bad Credit Collector Relationship Specialty Start Date End Date Teresita Choi APRN [address],[facility] [address] [place] [phone] [facility] - General 11/17/15
--- OUTSIDE RECORDS SUMMARY | 2024-08-04 22:13 | XMS_ITS | Encounter Summary ---
Author Organization [facility] Address [address] [place] [address] Care Team Providers Care Political Scientist Name Role Phone Unavailable Primary Care Provider Unavailabl e Encounter Details Date Type Department Care Team (Late st Contact Info) Description 12/16/2014 Results Only [facility] [phone] Monica Tovar, NET LEAD DEVELOPER [address] [facility] [address] [place] [id number] Social History Tobacco Use Types Packs/Day Years [...] Procedure Name Priority Date/Time Associated Diagnosis Comments PAP TEST- RESULT ONLY Routine 12/16/2014 0:00 EDT documented in this encounter Results * PAP TEST- RESULT ONLY (12/16/2014 0:00 EDT) Pathology Report: CYTOPATHOLOGY REPORT Reports generated via electronic interface contain original data; however they are lacking the format of the original report. Caution should be taken when reading/interpret ing unformatted reports. Name: ? LORAINE JONES ? Accession #: ? [id number] ? : ? 1990 (Age: 24) ??F ?Collect Date: ? 12/16/2014 ? Location: ? [facility] ? Receive Date: ? 12/19/2014 ? Provider: MONICA TOVAR NET LEAD DEVELOPER Copy to: ? Final Report SPECIMEN ADEQUACY ? Satisfactory for Evaluation - transformation zone component present GENERAL CATEGORIZATION ? Epithelial Cell Abnormality INTERPRETATION ? Squamous Cell Abnormality - Atypical squamous cells, undetermined significance (ASC-US). EDUCATIONAL NOTES/RECOMMENDAT IONS ? [facility] recommends following ASCCP's 2012 Updated Consensus Guidelines for the Management of Abnormal Cervical Cancer Screening Tests and Cancer Precursors (JLGTD, 2013; 17(5):S1-S27). ??Consensus guidelines are available online at www.asccp.org. Last Menstrual Period: 12/11/2014 Hormonal/Contrace ptive status: Oral contraceptives Specimen/Source: ??Pap Test, Endocervix, ThinPrep Imaging System with manual evaluation Document reviewed and electronically signed by: ? QUINTON SIFUENTES MD ? Report ??Date: 12/30/2014 16:33 HPV with Pap Test ? Date Ordered: ? 12/30/2014 ? Status: ?? Signed Out ?Date Complete: ? 01/01/2015 ? By: ??System Interface ? Date Reported: ? 01/01/2015 ? Interpretation RESULT: Negative for HPV. No E6 or E7 mRNA is detected from HPV types 16,18,31,33,35, 39,45,51,52,56,58 ,59,66, and 68 by aerospace manager mediated amplification. Comments Document reviewed and electronically signed by: ? System Interface ? Report date: 01/01/2015 By the signature above, the attending physician certifies that he/she has personally conducted a gross and/or microscopic examination of the described specimens and rendered or confirmed the above diagnosis. End of Report [facility] 12/16/2014 12/19/2014 us Monica Tovar NET LEAD DEVELOPER PATHOLOGY ORDERABLES Marichuy alexander Result [facility] [address] [place] [address] documented in this encounter Visit Diagnoses Not on filedocumented in this encounter
[2024-08-04 22:26] VITALS: BP 117/68; PULSE 69; RESP 16; O2SAT 96
--- NOTE | 2024-08-04 22:29 | ED.GENADUL_ITS ---
Discharge Plan Disposition Patient Disposition: Home Condition: Stable Discharge Details Clinical Impression: Acute endometritis, Retained products of conception after miscarriage Primary Care Provider: Unknown,Unknown ED Provider: Nadia Luz Home Meds and New Rx's Prescriptions: New doxycycline hyclate 100 mg capsule 100 mg PO BID 14 Days Qty: 28 0RF metronidazole 500 mg tablet 500 mg PO BID 14 Days Qty: 28 0RF Discharge Instructions Instructions: Pelvic Inflammatory Disease ED Additional Instructions: You were seen in the emergency department today for evaluation of abdominal pain, vomiting, and vaginal discharge after a recent miscarriage. In our department you had a full physical examination performed, had laboratory studies that were reassuring, and received medications for management of your symptoms. We discussed your situation with the DECORATING EQUIPMENT SETTER provider, and it is likely that you are experiencing a condition known as endometritis, an infection of the endometrium or lining of the uterus that can occur after . Certainly it is also possible that you have some retained products of conception given your uterine septum, though at this time you have no vaginal bleeding to suggest that. While you are visiting in [place], if you have any concerns or questions you can reach out to our DECORATING EQUIPMENT SETTER clinic at [phone]. You can also return to the emergency department, especially if you develop a fever or chills, have a sudden change or worsening of your pain, of nausea that prevents you from taking your antibiotics, or any other symptoms that cause you concern. You need to take 2 antibiotics for the next 14 days, doxycycline and metronidazole. Please avoid drinking alcohol with metronidazole as it can cause severe side effects. Please follow-up with your OBGYN or PCP in the next few days to discuss this visit and any symptoms that change, worsen, or persist. Thank you for allowing us to be part of your care. HPI General Mode of arrival: ambulatory . Date/Time Provider Initiated Documentation: 08/04/24 20:54 . Limitations to Documentation: no limitations . Information obtained by: patient, family and old records reviewed . HPI Narrative: HPI: This is a 33-year-old female patient, G1, P0 who had a miscarriage in late June, complicated by retained products of conception for which she has now undergone 2 D&Cs and 1 round of me so. She states that she was seen at [facility] last night, which is where she gets the majority of her care, where she had a transvaginal ultrasound that she reports showed ongoing retained products of conception. Over the course of this workup she has also been identified as having a uterine septum. She has had ongoing abdominal pain and nausea with vomiting, was sent home with the plan to take a second dose of miso processed and all, but presented for care today due to her vomiting. The patient is up visiting family for the holidays, states that she has had scant vaginal discharge, suprapubic abdominal tenderness, has not noted a fever. Exam: Gen: Awake and alert, in no apparent distress HEENT: Non-icteric sclera Neck: Supple Lungs: No apparent respiratory distress, normal respiratory effort. CV: Appears well perfused, strong distal pulses Abdomen: Non-distended, soft, tender to palpation in the suprapubic region without rigidity or rebound. Right upper quadrant not tender : Pelvic examination supervised by MATILDA Thomas, showing normal external female genitalia, scant white vaginal discharge with cervical motion tenderness on bimanual examination. MSK: Moves 4 extremities without apparent limitation in ROM Skin: Visualized skin without rashes, cyanosis. Neuro: Normal Gait, no obvious focal deficits or facial asymmetry. Speaks in full, clear sentences. Psych: Appropriate for situation. MDM: This is a 33-year-old female patient presenting for evaluation of abdominal pain, nausea and vomiting, and vaginal discharge without vaginal bleeding after management of miscarriage with retained products of conception. Differential includes but is not limited to retained products of conception, certainly considered PID/TOA and endometritis. [id number]-[id number] ultrasound was performed as noted below, which does not show an excessively thickened endometrial stripe, nor evidence of free fluid in the pelvis which would suggest hemoperitoneum. The patient had a negative jrbjc-wm-bzti screen, making ectopic or heterotopic less likely. Considered metabolic and electrolyte derangements, anemia, sepsis and bacteremia, urinary tract infection. We will obtain laboratory studies to include CBC, CMP, magnesium, UA, and will reach out to DECORATING EQUIPMENT SETTER. Will also attempt to obtain records from [facility]. I will provide the patient with initial management of pain and nausea to include Zofran, Tylenol, and Toradol. ED Course: I independently interpreted the laboratory studies, which show no significant leukocytosis, anemia, or thrombocytopenia. The chemistry panel is without evidence of electrolyte abnormality, kidney dysfunction, or liver injury. The patient received Dilaudid for ongoing pain as well as a second dose of Zofran. Discussed with DECORATING EQUIPMENT SETTER, and concern for retained products of conception slightly lower given the thin endometrial stripe on ultrasound, though certainly transabdominal limitations applied to this bedside scan. She is most concerned for endometritis given the patient's constellation of symptoms, and as the patient has not been started on any antibiotics I did provide her with an initial dose of doxycycline and Flagyl here in the emergency department. The patient reports a history of improvement in nausea with a small dose of Haldol, which was provided intravenously. She had good effect on her pain with the Dilaudid and oral Dilaudid take-home pack will be provided. The patient is desiring of discharge to home and I provided her with medications for ongoing symptom management as well as 2 weeks of antibiotics for her endometritis. I was able to obtain the records from [facility], including the ultrasound that was performed on 08/04/2024, which showed an enlarged endometrium, heterogenous contents with few cystic spaces, decreased in size from 07/19 ultrasound, without internal vascularity. Impression was that this likely represented blood products, less likely representing retained POC. Given this finding, I feel that treatment for endometritis is certainly indicated, and had an extended conversation with the patient regarding return precautions. I also provided her with our DECORATING EQUIPMENT SETTER clinic number, which she can call if she has worsening symptoms or concerns prior to returning home. She understands she can return to the emergency department if she is unable to control her symptoms in the outpatient environment. At this time, the patient has had a full medical evaluation and is safe for discharge to home. They are hemodynamically stable, ambulatory, and tolerating PO. They are understanding of the follow-up plan and return precautions. They left our facility without incident. Nadia Luz MD Related Data Home Medications ?Medication ?Instructions ?Recorded ?Confirmed doxycycline hyclate 100 mg capsule 100 mg PO BID 14 days #28 caps 08/04/24 metronidazole 500 mg tablet 500 mg PO BID 14 days #28 tabs 08/04/24 Previous Rx's ?Medication ?Instructions ?Recorded doxycycline hyclate 100 mg capsule 100 mg PO BID 14 days #28 caps 08/04/24 metronidazole 500 mg tablet 500 mg PO BID 14 days #28 tabs 08/04/24 Allergies Allergy/AdvReac Type Severity Reaction Status Date / Time morphine AdvReac Mild rash Verified 08/04/24 20:52 dust Allergy Mild Other (See Uncoded 08/04/24 20:52 Comment) General Stated Complaint: DECORATING EQUIPMENT SETTER CHELSY: 3 Course Vital Signs Vital signs: Vital Signs Temperature 36.8 C 08/04/24 20:46 Pulse 97 H 08/04/24 20:46 Respiratory Rate 16 08/04/24 20:46 Blood Pressure 102/72 08/04/24 20:46 Pulse Oximetry 98 08/04/24 20:46 Temperature 36.8 C 08/04/24 20:46 Pulse 69 08/04/24 22:26 Respiratory Rate 16 08/04/24 22:26 Respiratory Effort Normal, Non-Labored 08/04/24 22:00 Respiratory Depth Normal 08/04/24 22:00 Respiratory Pattern Normal 08/04/24 22:00 Blood Pressure 117/68 08/04/24 22:26 Pulse Oximetry 96 08/04/24 22:26 Oxygen Delivery Method Room Air 08/04/24 22:26 Oxygen Flow Rate 0 08/04/24 22:26 Pain Level 7 08/04/24 20:46 Lab/Test Results Lab/Test Results: Laboratory Tests Range/Units 08/04/24 21:35 WBC (4.4-10.8) 10^3/uL 10.11 RBC (3.93-5.22) 10^6/uL 4.24 Hgb (11.2-15.7) g/dL 13.2 Hct (36.0-46.0) % 38.9 MCV (80-95) fL 92 MCH (27.0-33.0) pg 31.1 MCHC (32.0-36.0) % 33.9 RDW (11.7-14.6) % 13.0 Plt Count (130-400) 10^3/uL 220 MPV (8.0-11.0) fL 8.4 Immature Gran % % 0.3 Neutrophils % % 82.0 Lymphocytes % % 5.1 Monocytes % % 11.1 Eosinophils % % 1.2 Basophils % % 0.3 Nucleated RBC % (0.0-0.3) % 0.0 Absolute Neutrophils (1.2-6.7) 10^3/uL 8.29 H Absolute Lymphocytes (1.2-3.4) 10^3/uL 0.52 L Absolute Monocytes (0.1-0.8) 10^3/uL 1.12 H Absolute Eosinophils (0.0-0.7) 10^3/uL 0.12 Absolute Basophils (0.0-0.2) 10^3/uL 0.03 Sodium (136-145) mmol/L 139 Potassium (3.5-5.1) mmol/L 3.7 Chloride (98-107) mmol/L 105 Carbon Dioxide (21.0-32.0) mmol/L 26.0 Anion Gap (3-11) mmol/L 8.0 BUN (7-18) mg/dL 9 Creatinine (0.55-1.02) mg/dL 0.9 Est GFR (CKD-EPI 2020) (mL/min/1.73m2) 85.50 Glucose (74-106) mg/dL 100 Calcium (8.5-10.1) mg/dL 8.4 L Magnesium (1.8-2.4) mg/dL 1.7 L Total Bilirubin (0.2-1.0) mg/dL 0.67 AST (15-37) U/L 25 ALT (14-59) U/L 28 Alkaline Phosphatase (46-116) U/L 62 Total Protein (6.4-8.2) g/dL 7.6 Albumin (3.4-5.0) g/dL 4.0 POC- Test(urine) Negative Medical Decision Making Quality:SDOH Health Related Social Needs: No Data to Display PFSH All Active Problems (Updated 08/04/24 @ 23:45 by Nadia Luz MD) Retained products of conception after miscarriage (Acute) Acute endometritis (Acute) Medical History (Updated 08/04/24 @ 23:45 by Nadia Luz MD) Face lesion Dyspepsia Surgical History (Updated 05/25/16 @ 12:20 by Estela Gonzalez) EGD - MAC (05/23/16) Colonoscopy - MAC (05/23/16) Appendectomy Family History (Updated 05/23/16 @ 06:23 by Haylee Moore MD) Other Diverticulitis large intestine Food intolerance in adult Social History Smoking/Tobacco Use Status: Never Smoking risk assessment performed?: Yes Alcohol Intake: never Drug use: Never Do you feel safe at home: Yes Do you feel safe in your relationship?: Yes POCUS Exam (ED) Limited OB Exam DATE OF EXAM:: 08/05/24 TIME OF EXAM:: 22:00 PROVIDER THAT PERFORMED THE STUDY: Nadia Luz IS THIS A REPEAT EXAM DURING THIS ENCOUNTER: No Type of Exam: Pelvic OB Trans Abdominal REASON FOR EXAM: Abdominal Pain VISUALIZED STRUCTURES: Uterus PERTINENT FINDINGS/IMPRESSION: other impression: Mildly thickened endometrial stripe, no pelvic free fluid Exam Complete.
[2024-08-04] MEDS: HYDROmorphone 2 MG/ML SYR 0.5 MG IVP (22:35)
[2024-08-04] MEDS: DOXYCYCLINE 100 MG in Normal Saline 100 ML IVPB (22:41)
[2024-08-04] MEDS: metroNIDAZOLE 500 MG/100 ML BAG 100 MG IVPB (22:42)
[2024-08-04 22:52] LABS: Bilirubin Negative (Negative); Blood Negative (Negative); Clarity Sl Cloudy (Clear); Glucose Negative (Negative); Ketones 15 mg/dL (Negative); Leukocyte Esterase Negative (Negative); Nitrite Negative (Negative); Urobilinogen 0.2 mg/dL (Up to 0.2); pH 5.5 (5-8)
[2024-08-04] MEDS: Haloperidol 5 MG/ML VIAL 2 MG IV (23:51)
[2024-08-05] MEDS: HYDROmorphone 2 MG TAB 8 MG PO (00:02)
[2024-08-05] MEDS: HYDROmorphone 2 MG TAB PO (00:02)
[2024-08-05 00:03] VITALS: BP 106/42; PULSE 70; RESP 16; O2SAT 95
[2024-08-05] MEDS: Ondansetron O.D.T. 4 MG TABEF, 3 TABS/BTL PO (00:07)
--- NOTE | 2024-08-05 13:57 | NUR.NOTE ---
Nursing Note: Received call that patient continues to vomit and is out of zofran. Received verbal orders from Dr. Harris for Zofran ODT 4mg Q6hrs PRN #30 tabs which was called to [facility]olen[facility] Patiño in [facility]. Patient made aware and instructed that if she is unable to keep anything down after the zofran to return to the emergency department for re-evaluation.
== END 2024-08-05 00:11 | disposition home or self-care (01) ==
PROVIDERS: Emergency Provider Emergency Medicine
DX: O03.0 Genital tract and pelvic infection following incomplete spontaneous abortion (principal); N71.0 Acute inflammatory disease of uterus; O90.89 Other complications of the puerperium, not elsewhere classified; R11.0 Nausea; M54.50 Low back pain, unspecified
CPT/HCPCS: 76815; 80053; 96365; 96367; 96368; 96375; 96376; 99285; 81003; 83735; 85025; J0131; J1171; J1630; J1836; J1885; J2405

== ENCOUNTER 2024-08-05 15:28 | Emergency (ER) | payer BC, SELFPAY ==
[2024-08-05] VITALS (13 sets, daily range): BP systolic 86–119; BP diastolic 39–75; PULSE 52–96; RESP 14–24; TEMP 37.4; O2SAT 96–99
--- NOTE | 2024-08-05 15:37 | ED.GENADUL_ITS ---
Discharge Plan Disposition Patient Disposition: Home Condition: Stable Discharge Details Clinical Impression: Acute endometritis Primary Care Provider: Unknown,Unknown ED Provider: Zhen Lincoln Home Meds and New Rx's Prescriptions: Continued doxycycline hyclate 100 mg capsule 100 mg PO BID 14 Days Qty: 28 0RF metronidazole 500 mg tablet 500 mg PO BID 14 Days Qty: 28 0RF Discharge Instructions Instructions: Diphenhydramine (Systemic), Ondansetron, Prochlorperazine, Endometriosis ED Additional Instructions: You were seen in the emergency department for your nausea and vomiting and inability to take your oral antibiotics for acute endometritis, we were able to control her nausea with multiple antiemetics, I am sending you home with another to go pack of Zofran, use this 20 to 30 minutes before getting some food in your stomach and then attempt antibiotic use, if you have breakthrough nausea then you may resort to using a Benadryl tablet and a prochlorperazine tablet as needed. Your beta hCG is negative making this likely just some retained blood and less likely retained products of conception but please call the women's health clinic here at the hospital tomorrow on some guidance whether to take the misoprostol pill you were provided with yesterday. If you continue to have intractable nausea or vomiting especially with worsening fever and abdominal pain, urinary retention or bowel changes please return. It is possible that you have a viral gastroenteritis as you have had some nausea and diarrhea, hopefully this passes in the next couple days. Referrals: [facility] [Provider Group] Discharge Data Discharge Date/Time-TO BE ENTERED AT DEPARTURE: 08/05/24 19:46 HPI General Date/Time Provider Initiated Documentation: 08/05/24 15:37 . HPI Narrative: 33 year-old female, , presents to ED today by POV/ambulating with a chief complaint of intractable nausea/vomiting- cannot hold her PO ABX down, was seen yesterday and diagnosed with acute endometritis, and possible retained products from miscarriage, but there is some question whether the products are just blood- recently seen at [facility] for her miscarriage with U/S report available from there. She was started on doxycycline and metronidazole by Dr. Luz yesterday, and was consulted on with OBGYN on-call. Quality described as focal anterior lower abdominal pain, radiating to the R flank, and vomiting with any PO intake today- required haldol for antiemetic yesterday, no radiation to chest pain, shortness of breath, urinary retention, dysuria, bowel changes, upper abdominal severe pain, endorses chills but is afebrile currently. Severity is described as moderate. Palliating factors include was not provided with antiemetics for home use. Provoking factors include nothing specific. Patient not anticoagulated. Related Data Home Medications ?Medication ?Instructions ?Recorded ?Confirmed doxycycline hyclate 100 mg capsule 100 mg PO BID 14 days #28 caps 08/04/24 08/05/24 metronidazole 500 mg tablet 500 mg PO BID 14 days #28 tabs 08/04/24 08/05/24 Previous Rx's ?Medication ?Instructions ?Recorded doxycycline hyclate 100 mg capsule 100 mg PO BID 14 days #28 caps 08/04/24 metronidazole 500 mg tablet 500 mg PO BID 14 days #28 tabs 08/04/24 Allergies Allergy/AdvReac Type Severity Reaction Status Date / Time morphine AdvReac Mild rash Verified 08/05/24 15:36 dust Allergy Mild Other (See Uncoded 08/05/24 15:36 Comment) General Stated Complaint: Abd Prob CHELSY: 3 Review of Systems All systems reviewed & are unremarkable except as noted in HPI and below Exam Narrative Exam Narrative: GENERAL APPEARANCE: Well-nourished, non-toxic, awake and alert, atraumatic, no acute distress. SKIN: Warm, pink, dry, intact, without rashes/lesions/ulcerations. HEAD: Normocephalic, atraumatic, normal hair distribution for gender/age. EYES: Normal conjunctiva, no exudates on lids/lashes. ENT: Nares patent, no circumoral cyanosis, no facial swelling NECK: Supple, trachea midline, painless cervical ROM. LUNGS/CHEST: Non-labored respirations, normal A/P diameter, symmetrical expansion, no chest wall deformity HEART (CV/PV): No peripheral edema, no JVD. ABDOMEN: Soft, non-distended, no guarding, mild suprapubic tenderness without rebound tenderness, no Rovsing's, mild R CVA tenderness to percussion. MSK: Normal ROM, no swelling/deformity to bilateral UEs or LEs, moving all extremities without weakness, no cyanosis, spine midline without tenderness, normal curvature. NEURO: Mental Status AAOx4 - alert to person, place, time, events No facial droop, no forehead involvement. Motor: No focal weakness - strength 5/5 in bilateral UEs and LEs, proximal and distal, symmetric. Sensory: sensation intact to light touch globally. Gait normal: patient ambulated without ataxia into ED room. PSYCH: euthymic, cooperative, pleasant, appropriate speech Course Vital Signs Vital signs: Vital Signs Temperature 37.4 C 08/05/24 15:32 Pulse 96 H 08/05/24 15:32 Respiratory Rate 24 08/05/24 15:32 Blood Pressure 111/75 08/05/24 15:32 Pulse Oximetry 96 08/05/24 15:32 Temperature 37.4 C 08/05/24 15:35 Pulse 96 H 08/05/24 15:35 Respiratory Rate 24 08/05/24 15:35 Blood Pressure 111/75 08/05/24 15:35 Blood Pressure Position Sitting 08/05/24 15:35 Pulse Oximetry 96 08/05/24 15:35 Oxygen Delivery Method Room Air 08/05/24 15:35 Oxygen Flow Rate 0 08/05/24 15:35 Medical Decision Making This dictation utilizes [id number] dictation software and may contain unedited grammatical errors. 33 year-old female, , presents to ED today by POV/ambulating with a chief complaint of intractable nausea/vomiting- cannot hold her PO ABX down, was seen yesterday and diagnosed with acute endometritis, and possible retained products from miscarriage, but there is some question whether the products are just blood- recently seen at [facility] for her miscarriage with U/S report available from there. She was started on doxycycline and metronidazole by Dr. Luz yesterday, and was consulted on with OBGYN on-call. Quality described as focal anterior lower abdominal pain, radiating to the R flank, and vomiting with any PO intake today- required haldol for antiemetic yesterday, no radiation to chest pain, shortness of breath, urinary retention, dysuria, bowel changes, upper abdominal severe pain, endorses chills but is afebrile currently. Severity is described as moderate. Palliating factors include was not provided with antiemetics for home use. Provoking factors include nothing specific. Patients' medical history: Acute endometritis, possible retained products of conception after miscarriage. Family and social history: Noncontributory. Pertinent exam findings / vital signs include mild suprapubic tenderness without rebound tenderness, negative Villalta's sign, R CVA tenderness to percussion, benign cardiopulmonary exam, afebrile, nontoxic, neuro intact. Differential / pathologies of concern include nausea/vomiting, acute endometritis, PID, TOA, renal colic. Diagnostic studies of: -CBC, CMP, Lipase, Magnesium, bHCG, UA, U/S Pelvic Non-OB. -CBC shows no leukocytosis -CMP shows potassium just below normal, this will replete with p.o. intake -Magnesium within normal lites -Lipase negative -Beta-hCG 7 -UA shows no evidence of infection, proteinuria or hematuria -Ultrasound shows similar findings with some retained likely blood, reviewed with [employer] alcohol Interventions of: -4 mg p.o. Zofran with p.o. challenge passed, attempted oral intake of antibiotics with some nausea, likely side effects of doxycycline, added 25 mg Benadryl and 5 mg Compazine-good relief of nausea plan to send home with some Benadryl tablets, further 3 tab pack of Zofran as well as some Compazine tablets, instructions to use Zofran, attempt oral intake of food to pass the stomach for nausea side effects of antibiotics, then use a Benadryl or Compazine tablet for breakthrough nausea, return for severe worsening. Advised to call [employer] office tomorrow of the abdomen back 2 days in a row about the misoprostol pill that was provided to them yesterday, I defer to specialist whether they should take this sort get some antibiotics and before possibly causing some more nausea and abdominal discomfort. Findings not consistent with sepsis, electrolyte abnormality, retained contents of conception after miscarriage as beta-hCG is negative, TOA or PID, renal colic. Disposition of acute endometritis. Patient verbalized understanding of the plan and return to ED criteria and engaged in shared decision making. Medical Records Medical records reviewed: Yes I reviewed the patient's medical records. Imaging Data Radiologic Study: Attestation: I personally reviewed and interpreted this imaging study as follows: Imaging: Ultrasound Radiologist's impression: EXAM: US PELVIS LIMITED CLINICAL HISTORY: endometritis, retained products. TECHNIQUE: Limited pelvic ultrasound was performed. Transabdominal only. Patient did desire study COMPARISON: US POCUS EXAM from 08/04/2024 FINDINGS: Uterus measures 10 cm length by 5.5 cm AP x 6 cm wide. There are no obvious uterine fibroids. The main finding here is heterogeneous echogenic material in the endometrial cavity towards the fundus level measuring approximately 3.2 x 2.8 x 2.7 cm, consistent with retained products of conception and some blood. Both ovaries appear unremarkable. Right ovary measures 4 x 3.2 x 1.9 cm and l eft ovary measures 2.7 x 3.1 x 1.9 cm. Both ovaries contain small sub cm follicular cysts. No solid masses in the ovaries. There are no extraovarian adnexal masses and there is no free fluid in the adnexal regions and cul-de-sac. IMPRESSION: 2. No abnormal adnexal findings 3. There is no free fluid evident in the pelvis. Lab Data Lab results reviewed: Yes I reviewed the patient's lab results. Labs: Laboratory Tests Range/Units 08/05/24 08/05/24 15:52 18:22 WBC (4.4-10.8) 10^3/uL 6.36 RBC (3.93-5.22) 10^6/uL 4.25 Hgb (11.2-15.7) g/dL 13.0 Hct (36.0-46.0) % 38.6 MCV (80-95) fL 91 MCH (27.0-33.0) pg 30.6 MCHC (32.0-36.0) % 33.7 RDW (11.7-14.6) % 13.0 Plt Count (130-400) 10^3/uL 203 MPV (8.0-11.0) fL 8.6 Immature Gran % % 0.2 Neutrophils % % 80.6 Lymphocytes % % 8.0 Monocytes % % 10.7 Eosinophils % % 0.2 Basophils % % 0.3 Nucleated RBC % (0.0-0.3) % 0.0 Absolute Neutrophils (1.2-6.7) 10^3/uL 5.13 Absolute Lymphocytes (1.2-3.4) 10^3/uL 0.51 L Absolute Monocytes (0.1-0.8) 10^3/uL 0.68 Absolute Eosinophils (0.0-0.7) 10^3/uL 0.01 Absolute Basophils (0.0-0.2) 10^3/uL 0.02 Sodium (136-145) mmol/L 140 Potassium (3.5-5.1) mmol/L 3.4 L Chloride (98-107) mmol/L 105 Carbon Dioxide (21.0-32.0) mmol/L 23.6 Anion Gap (3-11) mmol/L 11.4 H BUN (7-18) mg/dL 10 Creatinine (0.55-1.02) mg/dL 0.8 Est GFR (CKD-EPI 2020) (mL/min/1.73m2) 98.48 Glucose (74-106) mg/dL 96 Calcium (8.5-10.1) mg/dL 8.6 Magnesium (1.8-2.4) mg/dL 1.9 Total Bilirubin (0.2-1.0) mg/dL 0.78 AST (15-37) U/L 24 ALT (14-59) U/L 16 Alkaline Phosphatase (46-116) U/L 54 Total Protein (6.4-8.2) g/dL 7.4 Albumin (3.4-5.0) g/dL 3.6 Lipase (<78) U/L 27 Beta HCG, Quant (1-3) mIU/mL 7 H Urine Color (Yellow) Yellow Urine Clarity (Clear) Clear Urine pH (5-8) 5.5 Ur Specific Ute (1.005-1.025) 1.020 Urine Protein (Neg-Trace) mg/dL Negative Urine Ketones (Negative) mg/dL 80 H Urine Blood (Negative) Negative Urine Nitrite (Negative) Negative Urine Bilirubin (Negative) Negative Urine Urobilinogen (Up to 0.2) mg/dL 0.2 Ur Leukocyte Esterase (Negative) Negative Urine Glucose (Negative) mg/dL Negative Quality:SDOH Health Related Social Needs: No Data to Display PFSH All Active Problems (Updated 08/05/24 @ 19:39 by TED Vazquez) Retained products of conception after miscarriage (Acute) Acute endometritis (Acute) Medical History (Updated 08/05/24 @ 19:39 by TED Vazquez) Face lesion Dyspepsia Surgical History (Updated 05/25/16 @ 12:20 by Estela Gonzalez) EGD - MAC (05/23/16) Colonoscopy - MAC (05/23/16) Appendectomy Family History (Updated 05/23/16 @ 06:23 by Haylee Moore MD) Other Diverticulitis large intestine Food intolerance in adult Social History Smoking/Tobacco Use Status: Never Smoking risk assessment performed?: Yes Alcohol Intake: never Drug use: Never Do you feel safe at home: Yes Do you feel safe in your relationship?: Yes PAWSS Have you Been Recently Intoxicated or Drunk Within the Last 30 days?: No Have you Ever Experienced Previous Episodes of Alcohol Withdrawal?: No Have you ever Experienced Withdrawal Seizures?: No Have you ever Experienced Delirium Tremens(DT)s?: No Have you ever undergone Alcohol Rehabilitation Treatment (i.e, inpt ot outpatient treatment programs)?: No Have you ever Experienced Blackouts?: No Have you ever Combined Alcohol with other Downers within the last 90 days?: No Have you ever Combined Alcohol with any other Substance of Abuse during the last 90 days?: No Positive Blood Alcohol level on Presentation? [PCS.BAL]: No Evidence of Increased Autonomic Activity (i.e. HR>120, tremor, sweating, agitation, nausea)?: No Result: 0
--- NOTE | 2024-08-05 15:45 | DI.US_ITS ---
Exam(s) US PELVIS LIMITED EXAM: US PELVIS LIMITED CLINICAL HISTORY: endometritis, retained products. TECHNIQUE: Limited pelvic ultrasound was performed. Transabdominal only. Patient did desire study COMPARISON: US POCUS EXAM from 08/04/2024 FINDINGS: Uterus measures 10 cm length by 5.5 cm AP x 6 cm wide. There are no obvious uterine fibroids. The main finding here is heterogeneous echogenic material in the endometrial cavity towards the fundu s level measuring approximately 3.2 x 2.8 x 2.7 cm, consistent with retained products of conception a nd some blood. Both ovaries appear unremarkable. Right ovary measures 4 x 3.2 x 1.9 cm and left ovary measures 2.7 x 3.1 x 1.9 cm. Both ovaries contain small sub cm follicular cysts. No solid masses in the ovaries. There are no extraovarian adnexal masses and there is no free fluid in the adnexal regions and cul- de-sac. IMPRESSION: 2. No abnormal adnexal findings 3. There is no free fluid evident in the pelvis. DATA REPOSITORY:
[2024-08-05 16:01] LABS: Abs Immature Grans 0.01 10^3/uL (0.0-0.06); Absolute Basophil Count 0.02 10^3/uL (0.0-0.2); Absolute Eosinophil Count 0.01 10^3/uL (0.0-0.7); Absolute Lymphocyte Count 0.51 10^3/uL (1.2-3.4); Absolute Monocyte Count 0.68 10^3/uL (0.1-0.8); Absolute Neutrophil Count 5.13 10^3/uL (1.2-6.7); Basophils % 0.3 %; Eosinophils % 0.2 %; HCT 38.6 % (36.0-46.0); Immature Grans % 0.2 %; MCH 30.6 pg (27.0-33.0); MCHC 33.7 % (32.0-36.0); MCV 91 fL (80-95); MPV 8.6 fL (8.0-11.0); Monocytes % 10.7 %; Neutrophils % 80.6 %; Platelet Count 203 10^3/uL (130-400); RBC 4.25 10^6/uL (3.93-5.22); WBC 6.36 10^3/uL (4.4-10.8)
[2024-08-05] MEDS: Ondansetron 4 MG/2 ML VIAL IVP (16:02)
[2024-08-05] MEDS: Ketorolac 15 MG/ML VIAL IVP (16:08)
[2024-08-05] MEDS: ACETAMINOPHEN 1,000 MG/100 ML BAG 400 MG IVPB (16:08)
[2024-08-05] MEDS: Normal Saline 1,000 ML 1000 ML IV (16:09)
[2024-08-05 16:31] LABS: ALT 16 U/L (14-59); AST 24 U/L (15-37); Albumin 3.6 g/dL (3.4-5.0); Alkaline Phosphatase 54 U/L (46-116); Anion Gap 11.4 mmol/L (3-11); BUN 10 mg/dL (7-18); Bilirubin, Total 0.78 mg/dL (0.2-1.0); CO2 23.6 mmol/L (21.0-32.0); CREATININE 0.8 mg/dL (0.55-1.02); Calcium 8.6 mg/dL (8.5-10.1); Chloride 105 mmol/L (98-107); Estimated GFR 98.48 (mL/min/1.73m2); Glucose 96 mg/dL (74-106); HCG Quant, Pregnancy 7 mIU/mL (1-3); Magnesium 1.9 mg/dL (1.8-2.4); Potassium 3.4 mmol/L (3.5-5.1); Sodium 140 mmol/L (136-145); Total Protein 7.4 g/dL (6.4-8.2)
[2024-08-05 16:39] LABS: Lipase 27 U/L (<78)
[2024-08-05] MEDS: Doxycycline Hyclate 100 MG CAP PO (18:12)
[2024-08-05] MEDS: metroNIDAZOLE 500 MG TAB PO (18:12)
[2024-08-05 18:28] LABS: Bilirubin Negative (Negative); Blood Negative (Negative); Clarity Clear (Clear); Glucose Negative (Negative); Ketones 80 mg/dL (Negative); Leukocyte Esterase Negative (Negative); Nitrite Negative (Negative); Urobilinogen 0.2 mg/dL (Up to 0.2); pH 5.5 (5-8)
[2024-08-05] MEDS: Prochlorperazine 10 MG/2 ML VIAL 5 MG IVP (19:29)
[2024-08-05] MEDS: diphenhydrAMINE 50 MG/ML VIAL 25 MG IVP (19:30)
[2024-08-05] MEDS: Normal Saline 50 ML (19:31)
[2024-08-05] MEDS: diphenhydrAMINE 25 MG CAP 100 MG PO (19:56)
[2024-08-05] MEDS: Prochlorperazine 5 MG TAB 20 MG PO (19:56)
[2024-08-05] MEDS: Ondansetron O.D.T. 4 MG TABEF, 3 TABS/BTL PO (19:56)
== END 2024-08-05 19:46 | disposition home or self-care (01) ==
PROVIDERS: Emergency Provider Physician Assistant
DX: N80.9 Endometriosis, unspecified (principal); R11.2 Nausea with vomiting, unspecified
CPT/HCPCS: 36415; 76857; 80053; 83690; 96361; 96374; 96375; 99284; 81003; 83735; 84702; 85025; J0131; J0780; J1200; J1885; J2405